=== PATIENT | male | born 1960 | race Caucasian/White ===

== ENCOUNTER 2019-03-13 08:46 | Emergency (ER) | payer MEDICAID, SELFPAY ==
--- NOTE | 2019-03-13 08:47 | ED.VIS.GEN ---
History of Present Illness Chief Complaint: Dizziness Informant: Patient, Family, Physical Therapist Clinic Director Onset: Today Context: Sudden Onset Timing: Continuous Quality: Dizzy Location: Points to the epigastric area Current Severity: Mild Maximum Severity: Moderate Worsened by: Nothing. Patient states possibly anxiety Relieved by: nothing Associated Symptoms: No neurologic symptoms Narrative: Patient was treated at [facility] and diagnosed with left hemispheric stroke. He has left carotid disease and scheduled for surgery March 21. He states he returned to [facility] twice since discharge for symptoms that he believed was secondary to recurrent stroke. Today while eating breakfast he developed dizziness. When asked to clarify/define what he means by dizziness he reports a queasy sensation in his stomach and pointed to the epigastric area. He denied headache. He denied visual, ocular auditory symptoms he denied trouble with speech or swallowing. He denied new numbness or weakness right side. He denied problems with balance. He denied specifically double vision or spinning sensation. He denied motion. He states his queasiness has improved. With no prompting he made the comment this may be anxiety . Prior similar symptoms: Yes Recent Illness/Hospitalization: Yes - Past Medical History (1) Left hemispheric stroke Status: Acute Past Medical History - Allergies and Home Meds Allergies/Adverse Reactions: Allergies No Known Allergies Allergy (Verified 03/13/19 08:46) Prior records reviewed: No - No records available at [facility] Lives: With Family Alcohol: None Drugs: None Review of Systems General: Denies: Chills, Fever, Sweats Eyes: Denies: Visual changes - bilaterally, Blurred Vision - bilaterally, Diplopia ENT: Reports: - - No complaint of decreased hearing or ringing in his ears. Denies: Bilateral ear pain, Rhinorrhea, Sore throat Cardiovascular: Denies: Chest pain, Palpitations Respiratory: Denies: Dyspnea, Cough, Dyspnea on exertion Gastrointestinal: Reports: Nausea. Denies: Abdominal pain, Vomiting, Diarrhea, Constipation, Melena, Hematochezia, -, - Genitourinary: Denies: Dysuria, Hematuria, Frequency Musculoskeletal: Denies: Back pain, Extremity Pain Skin: Denies: Rash, Wounds Neurological: Denies: Headache, Weakness, Numbness Psych: Reports: Anxiety Hematologic: Denies: Easy bruising Allergy: Denies: Uticaria, Swelling of the mouth Physical Exam Inital Vital Signs reviewed: Yes General: Well nourished, Well developed, No Acute Distress Head: Normocephalic, Atraumatic Eyes: Perrl, EOMI. Negative for: Pale conjunctiva, Scleral icterus, - ENT: Moist mucous membranes, No rhinorrhea Neck: Supple, Nontender, No lymphadenopathy, No JVD Cardiovascular: Regular rate, Regular rhythm, No murmurs, Normal S1, Normal S2 Respiratory: No distress, CTA bilaterally, Chest nontender Abdomen: Soft, Nontender, Nondistended, Normal bowel sounds, No masses Back: Nontender, Normal Inspection Extremities: Nontender, No edema Skin: Normal color, No rash Neurological: Alert, Oriented x3, Cranial nerves II-XII grossly intact. Negative for: Normal Strength, Normal Sensation, Normal DTR - Babinski sign noted on right. Psychological: - - Patient appears slightly anxious. Diagnostic/Tx/Re-eval - Medical Decision Making Since patient's only symptom is nausea will treat with Zofran. Will look up records from [place] determine when he was admitted and discharged and if he is truly had 2 prior [address] after [address] CT of the head on February 20 revealed an acute left hemispheric stroke involving the frontal and parietal lobe. Patient had a CTA February 23 which revealed stenosis of the carotid arteries. Stenosis was not greater than 50%. Patient had repeat study March 08 which revealed large left frontal parietal stroke with hemorrhagic conversion. Patient was reassessed at 0940. His nausea has resolved. Patient was informed that his records were reviewed and he confirmed CAT scan and MRI findings. Plan is to discharge home with prescription for Zofran. ED Disposition - Plan for ED Patient: Disposition: Home or Assisted Living Diagnosis: Nausea, Anxiety reaction Instructions: ED Stress React Prescriptions: Ondansetron [Zofran Odt] 4 mg PO Q8H PRN PRN #10 tab PRN Reason: Nausea Referrals: Doctor,Your [STAFF PHYSICIAN] - Keep Leann appointment
[2019-03-13 08:48] VITALS: BP 162/77; PULSE 73; RESP 18; TEMP 36.8; O2SAT 100; BMI 23.9
[2019-03-13] MEDS: Ondansetron ODT 4 MG Tablet PO (09:01)
[2019-03-13 09:46] VITALS: BP 144/90; PULSE 59; RESP 16; O2SAT 99
== END 2019-03-13 10:21 | disposition home or self-care (01) ==
PROVIDERS: Emergency Provider Emergency Medicine
DX: F41.1 Generalized anxiety disorder (principal); R11.0 Nausea; Z86.73 Personal history of transient ischemic attack (TIA), and cerebral infarction without residual deficits
CPT/HCPCS: 99285